=== PATIENT | male | born 1995 | race Caucasian/White ===

== ENCOUNTER 2024-05-16 06:12 | Emergency (ER) | payer OTHER ==
[2024-05-16] MEDS ORDERED: Metoclopramide HCl 10 MG (2 mL) VIAL ONE (06:23)
[2024-05-16] MEDS ORDERED: Famotidine/PF 20 mg/2ml Vial ONE (06:23)
[2024-05-16 06:51] LABS: Hematocrit 49.8 % (38.8-50.0); Hemoglobin 16.4 g/dL (13.5-17.5); Mean Corpuscular HGB CONC 32.9 g/dL (32.0-36.0); Mean Corpuscular Hemoglobin 29.3 pg (27.0-33.0); Mean Corpuscular Volume 89.1 fL (81.2-95.1); Mean Platelet Volume 10.6 fL (7.4-10.4); RBC Distribution Width 12.6 % (11.5-14.5); Red Blood Cell (RBC) Count 5.59 10x6/uL (4.32-5.72)
[2024-05-16 06:57] LABS: Actual Bicarbonate (HCO3v) 6.9 mEq/L (22-28); Analyzer IN Cardio CS ER; Base Excess -23.6 mEq/L (-2 - +2); Calcium, Ionized (venous) 1.18 mmol/L (1.16-1.32); Chloride (VBG) 99 mmol/L (98-106); Critical Notified Whom: DURRI; Hematocrit-VBG 50 % (42.0-52.0); Hemoglobin (Hb) 17.1 g/dL (13.2-17.3); Potassium (VBG) 5.81 mmol/L (3.70-5.30); Puncture Site Other Site; RapidComm Collect By CBN; Sodium 143 mmol/L (133-146); pH (venous) 6.991 (7.32-7.43)
[2024-05-16 07:06] LABS: Troponin I Less than 0.010 ng/mL (< 0.028)
[2024-05-16 07:07] LABS: ALT (SGPT) 20 U/L (8-55); AST (SGOT) 16 U/L (5-34); Albumin 4.9 g/dL (3.5-5.0); Alkaline Phosphatase 142 U/L (40-110); BUN (Urea Nitrogen) 37 mg/dL (8.9-20.6); Bilirubin, Total 0.2 mg/dL (0.2-1.2); Calc. Creatinine Clearance 0 mL/min (70-130); Calcium 9.4 mg/dL (7.8-10.44); Chloride 99 mmol/L (98-107); Estimated GFR 38; Globulin 3.4 g/dL (2.4-3.5); Lipase 185 U/L (8-78); Magnesium 2.6 mg/dL (1.6-2.6); Phosphorus 9.2 mg/dL (2.3-4.7); Protein, Total 8.3 g/dL (6.0-8.3); Sodium 139 mmol/L (136-145)
[2024-05-16] MEDS ORDERED: Insulin Regular, Human 100 UNIT/ML 10 ML VIAL ONE (07:09)
[2024-05-16] MEDS ORDERED: INSULIN REGULAR IN 0.9 % NACL 100 ML ONE (07:09)
[2024-05-16 07:13] LABS: Platelet Count 295 10x3/uL (150-450)
[2024-05-16 07:15] LABS: MDiff Complete? YES
[2024-05-16 07:17] LABS: Carbon Dioxide Less than 8 mmol/L (22-29); Glucose 756 mg/dL (70-105); Potassium 6.2 mmol/L (3.5-5.1)
[2024-05-16] MEDS ORDERED: cefTRIAXone (ROCEPHIN) 2 GM VIAL ONE (07:24)
[2024-05-16 07:25] LABS: Band 10 % (5-11); Lymphocytes 4 % (21-51); Monocytes 5 % (0-10); Neutrophil 81 % (42-75)
[2024-05-16 07:26] LABS: Large Platelets SLIGHT (None Seen); Platelet Adequacy Comment Appears Adequate; RBC Morph Comment Within Normal Limits
[2024-05-16] MEDS ORDERED: Sodium Bicarb 50 MEQ/50 ML Abboject 8.4% SYRINGE ONE (07:41)
[2024-05-16 08:20] LABS: Critical Call Chem-Lactate ERS..KW@0815
[2024-05-16 08:58] LABS: Bilirubin Neg (Negative); Blood, Urine Negative (Negative); Clarity Clear (Clear); Glucose, Urine (Dipstick) >=1000 mg/dL (Negative); Ketone, Urine 150 mg/dL (Negative); Leukocyte Negative (Negative); Nitrite Negative (Negative); Protein, Urine (Dipstick) 30 mg/dl (Neg-Trace); Urobilinogen Normal mg/dL (Less than 2)
[2024-05-16 09:28] LABS: Bacteria/HPF None Seen HPF (None Seen); CAUTI Indications for Culture Alt mental st,lethar; RBC/HPF None Seen HPF (0-3); Squamous Epithelial 0-3 HPF (0-3); WBC/HPF None Seen HPF (0-3)
[2024-05-16 09:29] LABS: Urine Culture Reflex No No
[2024-05-16 10:54] LABS: Anion Gap 25 mmol/L (10-20); BUN (Urea Nitrogen) 28 mg/dL (8.9-20.6); Calc. Creatinine Clearance 0 mL/min (70-130); Calcium 8.5 mg/dL (7.8-10.44); Carbon Dioxide 12 mmol/L (22-29); Chloride 112 mmol/L (98-107); Estimated GFR 52; Glucose 348 mg/dL (70-105); Potassium 4.2 mmol/L (3.5-5.1); Sodium 145 mmol/L (136-145)
[2024-05-16 11:23] LABS: Phosphorus 1.7 mg/dL (2.3-4.7)
== END 2024-05-16 12:45 | disposition short-term general hospital (02) ==
LOC: CSHERS 06:12
DX: E10.10 Type 1 diabetes mellitus with ketoacidosis without coma (principal); Z79.4 Long term (current) use of insulin; Z75.3 Unavailability and inaccessibility of health-care facilities; Z91.199 Patient's noncompliance with other medical treatment and regimen due to unspecified reason
CPT/HCPCS: 36415; 36416; 80053; 81001; 82010; 82805; 83605; 83690; 83735; 84100; 84484; 85025; 87040; 93005; 94760; J0696; J1815; J2765; J3490

== ENCOUNTER 2024-07-04 17:45 | Emergency (ER) | payer OTHER ==
[2024-07-04 18:08] LABS: Actual Bicarbonate (HCO3v) 10.1 mEq/L (22-28); Analyzer IN Cardio CS ER; Base Excess -18.3 mEq/L (-2 - +2); Calcium, Ionized (venous) 1.21 mmol/L (1.16-1.32); Chloride (VBG) 105 mmol/L (98-106); Critical Notified By: ASANCHEZ; Hematocrit-VBG 51 % (42.0-52.0); Hemoglobin (Hb) 17.3 g/dL (13.2-17.3); Potassium (VBG) 4.74 mmol/L (3.70-5.30); Puncture Site Other Site; RapidComm Collect By LAB.CB; Sodium 143 mmol/L (133-146); pH (venous) 7.108 (7.32-7.43)
[2024-07-04 18:33] LABS: Phosphorus 4.8 mg/dL (2.3-4.7)
[2024-07-04 18:36] LABS: ALT (SGPT) 19 U/L (8-55); AST (SGOT) 14 U/L (5-34); Albumin 4.8 g/dL (3.5-5.0); Alkaline Phosphatase 115 U/L (40-110); Anion Gap 27 mmol/L (10-20); BUN (Urea Nitrogen) 23 mg/dL (8.9-20.6); Bilirubin, Total 0.3 mg/dL (0.2-1.2); Calc. Creatinine Clearance 0 mL/min (70-130); Calcium 9.2 mg/dL (7.8-10.44); Carbon Dioxide 10 mmol/L (22-29); Chloride 108 mmol/L (98-107); Estimated GFR 75; Globulin 3.5 g/dL (2.4-3.5); Glucose 324 mg/dL (70-105); Potassium 4.8 mmol/L (3.5-5.1); Protein, Total 8.3 g/dL (6.0-8.3); Sodium 140 mmol/L (136-145)
[2024-07-04 18:47] LABS: #Basophils 0.07 10x3/uL (0.0-0.2); #Monocytes 1.07 10x3/uL (0.0-1.1); %Basophils 0.4 % (0.0-2.0); %Lymphocytes 3.4 % (18.0-47.0); %Monocytes 6.2 % (0.0-10.0); %Neutrophils 89.1 % (40.0-75.0); Hematocrit 48.8 % (38.8-50.0); Hemoglobin 16.3 g/dL (13.5-17.5); Mean Corpuscular HGB CONC 33.4 g/dL (32.0-36.0); Mean Corpuscular Hemoglobin 29.5 pg (27.0-33.0); Mean Corpuscular Volume 88.2 fL (81.2-95.1); Mean Platelet Volume 9.8 fL (7.4-10.4); Platelet Count 257 10x3/uL (150-450); RBC Distribution Width 12.5 % (11.5-14.5); Red Blood Cell (RBC) Count 5.53 10x6/uL (4.32-5.72); White Blood Cell (WBC) Count 17.3 10x3/uL (3.5-10.5)
[2024-07-04] MEDS ORDERED: INSULIN REGULAR IN 0.9 % NACL 100 ML ONE (19:30)
[2024-07-04] MEDS ORDERED: Ondansetron PF 4 MG/2 ML Vial ONE (19:53)
[2024-07-04 20:36] LABS: Bilirubin Neg (Negative); Blood, Urine Negative (Negative); Clarity Clear (Clear); Glucose, Urine (Dipstick) >=1000 mg/dL (Negative); Ketone, Urine 150 mg/dL (Negative); Leukocyte Negative (Negative); Nitrite Negative (Negative); Protein, Urine (Dipstick) 30 mg/dl (Neg-Trace); Specific Gravity, Urine 1.025 (1.005-1.030); Urobilinogen Normal mg/dL (Less than 2)
[2024-07-04 20:53] LABS: Bacteria/HPF Rare-Few HPF (None Seen); CAUTI Indications for Culture Dysuria,urgency,freq; RBC/HPF 0-3 HPF (0-3); Squamous Epithelial 0-3 HPF (0-3); WBC/HPF 0-3 HPF (0-3)
[2024-07-04 20:54] LABS: Yeast-Budding Rare HPF (None Seen)
[2024-07-04 20:55] LABS: Transitional Epithelial 0-3 HPF (None Seen); Urine Culture Reflex No No
[2024-07-04] MEDS ORDERED: NS 0.9% w/ 20 MEQ KCL 1,000 ML ONE (21:42)
[2024-07-04] MEDS ORDERED: D5 1/2 NS w/20 mEq KCL 1,000 ML ONE (23:34)
[2024-07-05 00:22] LABS: ALT (SGPT) 16 U/L (8-55); AST (SGOT) 16 U/L (5-34); Albumin 4.1 g/dL (3.5-5.0); Alkaline Phosphatase 94 U/L (40-110); Anion Gap 19 mmol/L (10-20); BUN (Urea Nitrogen) 17 mg/dL (8.9-20.6); Bilirubin, Total 0.3 mg/dL (0.2-1.2); Calc. Creatinine Clearance 0 mL/min (70-130); Calcium 8.8 mg/dL (7.8-10.44); Carbon Dioxide 10 mmol/L (22-29); Chloride 117 mmol/L (98-107); Estimated GFR 96; Globulin 3.5 g/dL (2.4-3.5); Glucose 145 mg/dL (70-105); Potassium 4.7 mmol/L (3.5-5.1); Protein, Total 7.6 g/dL (6.0-8.3); Sodium 141 mmol/L (136-145)
[2024-07-05] MEDS ORDERED: Ondansetron PF 4 MG/2 ML Vial ONE (00:38)
[2024-07-05] MEDS ORDERED: Promethazine HCl 12.5 MG in Sodium Chloride 0.9% 100 ML IVPB SCH (02:30)
== END 2024-07-05 02:50 | disposition short-term general hospital (02) ==
LOC: CSHERS 17:45 → EEVIPCON 17:45 → CSHERS 07-05 02:50
DX: E11.10 Type 2 diabetes mellitus with ketoacidosis without coma (principal); R10.33 Periumbilical pain
CPT/HCPCS: 36415; 36416; 71045; 80053; 81001; 82010; 82805; 83605; 83690; 83735; 83930; 84100; 85025; 93005; 96374; 96375; 96376; J1815; J2405; J3480